=== PATIENT | male | born 1955 | race Hispanic/Latino ===

== ENCOUNTER → 2024-06-10 | Outpatient (CLI) | payer MEDICARE ==
--- NOTE | 2024-06-11 07:18 | HMCSR ---
APPROVED REPORT Laterality: Bilateral Doppler Spectral Velocity Analysis PSV / EDVPSV / EDV ECA (R) 83 / cm/sECA (L) 149 / cm/s dICA (R) 83 / 27 cm/sdICA (L) 76 / 30 cm/s [place] (R) 78 / 25 cm/smICA (L) 67 / 22 cm/s pICA (R) 47 / 15 cm/spICA (L) 62 / 22 cm/s dCCA (R) 68 / 13 cm/sdCCA (L) 72 / 21 cm/s mCCA (R) 66 / 12 cm/smCCA (L) 81 / 23 cm/s pCCA (R) 63 / 13 cm/spCCA (L) 114 / 21 cm/s Vert (R) 32 / cm/sVert (L) 35 / cm/s Subl. (R) 124 / cm/sSubl. (L) 130 / cm/s ICA/CCA 1.22ICA/CCA 0.67 Technologist Impression Minimal plaque noted in the right carotid artery without hemodynamic significance. Mild heterogenous plaque noted in the left carotid artery without hemodynamic significance. The bilateral vertebral arteries reflect antegrade flow. Conclusion Minimal plaque noted in the bilateral carotids, without hemodynamic significance. Bilateral vertebral arteries appear antegrade. Conclusion Minimal plaque noted in the bilateral carotids, without hemodynamic significance. Bilateral vertebral arteries appear antegrade.
== END | disposition home or self-care (01) ==
LOC: SHCH 10:53
PROVIDERS: ATTEND Internal Medicine Cardiovascular Disease
DX: I65.22 Occlusion and stenosis of left carotid artery (principal); I77.9 Disorder of arteries and arterioles, unspecified
CPT/HCPCS: 93880